=== PATIENT | male | born 1945 | race Caucasian/White ===

== ENCOUNTER → 2017-04-16 | Outpatient (CLI) | payer OTHER, MEDICARE ==
[~2017-04-16] MED LIST: ASPI-781 PO; BACL10TA PO; CHOL50009 PO; DEXL60CA2 PO; DULO60CA59 PO; Docusate Sodium/Ferrous Fumar PO; FEBU40TA PO; FINA5TAB PO; GABA-528 PO; HYDR200T5 PO; MAXIDE PO; METO-336 PO; MEVA40 PO; POTA20TA96 PO; PRED-253 PO; TAMS-14 PO; [UNRECOGNIZED DRUG - CODE] PO
--- NOTE | 2017-04-16 10:02 | PN ---
Date/Time of Note Date/Time of Note DATE: 04/16/17 TIME: 09:52 Outpatient Progress Note Chief Complaint Recent right hip dislocation HPI 71-year-old male who is status post right total hip arthroplasty on 06/02/2015 Presents today after experiencing repeat hip dislocation about 1 week ago. Patient has history of hip dislocation that occurred a couple weeks after surgery in June 2015. Patient states that dislocation was a posterior dislocation. Approach of previous total hip replacement was the posterior row. Patient states that currently, he is doing fine as his pain is minimal but he is experiencing stiffness after dislocation. He is currently wearing knee immobilizer to prevent him from flexing his knee which makes it easier to flex his hip, per patient account as given by the emergency room physician in regards to post reduction instructions. Denies any repeat injury since dislocation about a week ago. Denies any symptoms radiating down the leg. Does have some weakness with movement. Denies any chest pain/tightness or difficulty breathing. Review of Systems Const: No Fever, no chills, no Fatigue, normal appetite, no diaphoresis. Resp: No SOB, no wheezing, no chest pain. CV: No chest pain, no palpitaions, no WAYNE. Physical Exam Blood pressure is 114/57, temperature is 97.7, pulse is 75, respiratory rate is 12, height is 5 foot 10 inches, weight is 185 pounds General Appearance: well-developed, well-nourished, in no acute distress. Right hip: Well-healed scar status post posterior surgery in 2014. Patient is able to flex the hip up to 45/50 on exam today. Gait showing slight limp. Patient is using knee immobilizer on examination today. Denies any severe pain complaints with range of motion to the hip today. Internal and external rotation not tested today given recent dislocation. Normal sensory examination to light touch. Using a walker for assisted ambulation as well. Allergies Coded Allergies: Penicillins (Verified Allergy, Unknown, RASHES(?), 06/02/15) Assessment/Plan Problems: (1) Status post total hip replacement, right (2) S/P closed reduction of dislocated total hip prosthesis * Posterior hip precautions will be initiated for the next 6-8 weeks. Avoid sitting in low chairs, have pillows in between the legs while sleeping. No strenuous activity or heavy weightbearing. Avoid internal and external rotation and extreme degrees. * Follow-up in 6 weeks for repeat evaluation status post reduction of hip dislocation to the right hip. * Anti-inflammatories as needed for any pain or discomfort. Dr. Mueller was present for examination and agrees with plan. Medications Home Meds Active Scripts [Docusate Sodium/Ferrous Fumar] 1 TAB TABSR No Conflict Check, 1 TAB PO BID for 30 Days, 1 Refill Prov:EDSON TOLLIVER 06/05/15 Aspirin* (Ecotrin*) 325 Mg Tabec, 325 MG PO BID for 45 Days Prov:CARLIE PIERCE 06/03/15 Reported Medications Cholecalciferol* (Vitamin D*) 5,000 Unit Tablet, 1000 UNIT PO DAILY, TAB 06/02/15 Potassium Chloride* (Potassium Chloride*) 20 Meq Tablet.er, 10 MEQ PO DAILY, TAB.SA 06/02/15 Duloxetine Hcl* (Duloxetine Hcl*) 60 Mg Capsule.dr, 60 MG PO DAILY, CAP 06/02/15 Hydroxychloroquine Sulfate* (Plaquenil*) 200 Mg Tab, 200 MG PO BID, TAB 08/28/13 Febuxostat* (Uloric*) 40 Mg Tablet, 40 MG PO DAILY 05/20/13 Finasteride* (Proscar*) 5 Mg Tablet, 5 MG PO DAILY 05/20/13 Dexlansoprazole (Dexilant) 60 Mg Cap., 60 MG PO DAILY 05/20/13 Prednisone (Prednisone) 5 Mg Tablet, 5 MG PO DAILY 04/04/10 Metoprolol Succinate* (Toprol XL*) 100 Mg Tab.sr.24h, 100 MG PO DAILY 04/04/10 Triamterene/Hctz (Maxzide (75/50)) 1 Tab Tab, 1 TAB PO DAILY 04/04/10 Lovastatin (Lovastatin) 40 Mg Tablet, 80 MG PO DAILY 04/04/10 Hydrocodone Bit/Acetaminophen (Hydrocodone-Apap 7.5-750 Mg Tb) 1 Tab Tablet, 1 TAB PO PRN 04/04/10 Gabapentin* (Gabapentin*) 800 Mg Tablet, 1600 MG PO BID 04/04/10 Tamsulosin Hcl* (Flomax*) 0.4 Mg Cap.sr.24h, 0.4 MG PO BID 04/04/10 Baclofen* (Baclofen*) 10 Mg Tablet, 10 MG PO BID 04/04/10 MONICO OLMOS PA-C Apr 16, 2017 10:02
--- NOTE | 2017-04-16 11:36 | RADRPT ---
PROCEDURE: XR Right hip and pelvis. CLINICAL INDICATION: Right hip pain. Pelvic pain. Postop. TECHNIQUE: Two views. Frontal pelvis and Lateralright hip. COMPARISON: 09/20/2015. FINDINGS: There is no fracture or dislocation. Vascular calcifications are present consistent with atherosclerosis. There is a right hip total arthroplasty which appears satisfactory. There are moderate degenerative changes of the left hip with joint space narrowing and osteophytes. There is no lytic or blastic lesion. The upper pelvis is not completely included on the image. IMPRESSION: 1. Satisfactory postoperative appearance of the right hip. 2. Atherosclerosis. 3. Moderate degenerative changes of the left hip. RPTAT: QQ .Fernando Pineda MD, Date Time Electronically viewed and signed by .Fernando Pineda MD, on 04/16/2017 11:35 .R/
== END | disposition home or self-care (01) ==
LOC: HKI 09:13
DX: T84.020A Dislocation of internal right hip prosthesis, initial encounter (principal); Y84.8 Other medical procedures as the cause of abnormal reaction of the patient, or of later complication, without mention of misadventure at the time of the procedure; Z96.641 Presence of right artificial hip joint; Z88.0 Allergy status to penicillin
CPT/HCPCS: 73502; G0463

== ENCOUNTER → 2017-05-28 | Outpatient (CLI) | payer OTHER, MEDICARE ==
--- NOTE | 2017-05-28 15:23 | HKNOTE ---
DATE OF SERVICE: 05/28/2017 Patient comes in for recheck. He had a right total hip replacement on 06/18/2015. His hip dislocat ed and was reduced at the [facility]. Since then, the hip has not had any further subluxat ions or dislocations. He has no pain at all and he is very pleased with the results of his surgery. PHYSICAL EXAMINATION: The right hip has a full range of motion without pain. All muscles around th e hip have 5/5 strength. His gait is normal. MANAGEMENT: The patient is doing well. He will still be careful with putting the hip through severe range of motion in any direction. He will be seen again in 6 months' time for reevaluation. Dictated By: ANIA MORGAN/ALBERTINA Conf#: [id number] DID#: [id number]
== END | disposition home or self-care (01) ==
LOC: HKI 09:29
DX: Z09 Encounter for follow-up examination after completed treatment for conditions other than malignant neoplasm (principal); Z96.641 Presence of right artificial hip joint
CPT/HCPCS: 73502; G0463